=== PATIENT | female | born 1945 | race Caucasian/White ===

== ENCOUNTER → 2020-09-13 | Outpatient (CLI) | payer MEDICARE, OTHER ==
[2020-08-30 12:40] VITALS: BP 132/82
[~2020-09-13] MED LIST: CIMETIDINE PO; CYMBALTA60 M1 PO; FUROSEMIDE40 MG; KLOR-CON M1010 MEQ PO; LIPITOR 40MG TA40 MG PO; NEXIUM 40MG40 MG; ONABOTULINUMTOXINA IM; PERCOCET 325 MG1 TAB PO; REMERON15 MG PO; RENEXA; SINGULAIR PO; TREXIMET
[2020-09-13 11:45] LABS: BASO # 0.1 (0.02-0.10); EOS # 0.5 (0.04-0.40); EOS % 7.4 % (1.0-5.0); HEMATOCRIT 40.9 % (37.0-47.0); HEMOGLOBIN 13.2 g/dL (12.5-16.0); LYMPH# 1.3 (1.50-4.00); MEAN CELL VOLUME 89 fl (78-100); MEAN CORPUSCULAR HEMOGLOBIN 29 pg (27-31); MEAN CORPUSCULAR HGB CONC 32 g/dL (33-37); MEAN PLATELET VOLUME 11.2 fl (7.4-10.4); MONO # 0.7 (0.20-0.80); NEU # 4.1 (1.40-6.50); PLATELET COUNT 237 K/mm3 (130-400); RED BLOOD COUNT 4.61 M/mm3 (4.10-5.30); RED CELL DISTRIBUTION WIDTH 14.8 % (11.5-14.5); WHITE BLOOD COUNT 6.6 K/mm3 (4.8-10.8)
[2020-09-13 11:53] LABS: CALCIUM 9.2 mg/dL (8.3-10.5)
[2020-09-13 11:55] LABS: TOTAL PROTEIN 6.6 g/dL (6.2-8.1)
[2020-09-13 11:57] LABS: TOTAL BILIRUBIN 0.9 mg/dL (0.2-1.2)
== END ==
LOC: LAB 10:46
PROVIDERS: Physician Assistant
DX: Z13.29 Encounter for screening for other suspected endocrine disorder (principal); J90 Pleural effusion, not elsewhere classified; S22.42XA Multiple fractures of ribs, left side, initial encounter for closed fracture; E78.5 Hyperlipidemia, unspecified; G62.9 Polyneuropathy, unspecified; R03.0 Elevated blood-pressure reading, without diagnosis of hypertension; W19.XXXD Unspecified fall, subsequent encounter

== ENCOUNTER → 2020-10-04 | Outpatient (CLI) | payer MEDICARE, OTHER ==
[2020-08-30 12:40] VITALS: BP 132/82
== END ==
LOC: RAD 06:39
DX: M51.36 Other intervertebral disc degeneration, lumbar region (principal); M48.07 Spinal stenosis, lumbosacral region
CPT/HCPCS: A9585

== ENCOUNTER → 2020-10-26 | Outpatient (CLI) | payer MEDICARE, OTHER ==
[2020-08-30 12:40] VITALS: BP 132/82
== END ==
LOC: RAD 07:30
DX: M25.511 Pain in right shoulder (principal)

== ENCOUNTER → 2020-11-17 | Outpatient (CLI) | payer MEDICARE, OTHER ==
[2020-08-30 12:40] VITALS: BP 132/82
[2020-11-17 23:15] LABS: FOLATE (FOLIC ACID) 19.6 ng/mL (7.0-31.4)
[2020-11-18 00:20] LABS: SYPHILIS AB SCREEN w REFLEX Negative (Negative)
[2020-11-21 14:48] LABS: VITAMIN E 12.6 mg/L (())
== END ==
LOC: LAB 14:17
PROVIDERS: Nurse Practitioner
DX: G43.719 Chronic migraine without aura, intractable, without status migrainosus (principal); R20.2 Paresthesia of skin

== ENCOUNTER 2020-11-30 11:05 | Outpatient (RCR) | payer MEDICARE, OTHER ==
[2020-08-30 12:40] VITALS: BP 132/82
== END 2021-02-28 | disposition home or self-care (01) ==
LOC: PT
DX: M25.511 Pain in right shoulder (principal)

== ENCOUNTER → 2021-02-14 | Outpatient (CLI) | payer MEDICARE, OTHER ==
[2020-08-30 12:40] VITALS: BP 132/82
[~2021-02-14] MED LIST changes: +ACETAMINOPHEN-H1 TA2 PO; +ASPIRIN E.C. 8181 MG PO; +ATORVASTATIN CA80 MG PO; +KLOR-CON 1010 MEQ PO; +RANEXA500 M1 PO; +TRAMADOL 50 MG TAB PO
[2021-02-14 11:20] LABS: HEMATOCRIT 41.1 % (37.0-47.0); HEMOGLOBIN 13.2 g/dL (12.5-16.0); MEAN PLATELET VOLUME 11.6 fl (7.4-10.4); RED BLOOD COUNT 4.66 M/mm3 (4.10-5.30); RED CELL DISTRIBUTION WIDTH 15.3 % (11.5-14.5); WHITE BLOOD COUNT 9.4 K/mm3 (4.8-10.8)
[2021-02-14 11:30] LABS: POTASSIUM 4.4 mmol/L (3.5-5.1)
[2021-02-14 11:31] LABS: CALCIUM 9.2 mg/dL (8.3-10.5)
[2021-02-14 11:32] LABS: TOTAL PROTEIN 6.6 g/dL (6.2-8.1)
[2021-02-14 11:34] LABS: TOTAL BILIRUBIN 0.6 mg/dL (0.2-1.2)
[2021-02-14 21:52] LABS: IGM,SERUM 128 mg/dL (33-293); IMMUNOGLOBULIN A 173 mg/dL (69-517); IMMUNOGLOBULIN G 571 mg/dL (552-1631)
[2021-02-15 11:25] LABS: CERULOPLASMIN 31 mg/dL (20-60)
[2021-02-18 09:00] LABS: VITAMIN B1 213 nmol/L (70-180)
[2021-02-20 10:59] LABS: A/G RATIO (PEP) 1.19 (())
== END ==
LOC: LAB 10:42
PROVIDERS: Psychiatry & Neurology Neurology
DX: G62.9 Polyneuropathy, unspecified (principal); R29.6 Repeated falls; R27.0 Ataxia, unspecified

== ENCOUNTER → 2021-02-20 | Outpatient (CLI) | payer MEDICARE, OTHER ==
[2020-08-30 12:40] VITALS: BP 132/82
== END ==
LOC: LAB 02-16 15:13
DX: G62.9 Polyneuropathy, unspecified (principal)

== ENCOUNTER 2021-03-01 10:29 | Outpatient (RCR) | payer MEDICARE, OTHER ==
[2020-08-30 12:40] VITALS: BP 132/82
[~2021-03-01 10:29] MED LIST changes: -ACETAMINOPHEN-H1 TA2 PO; -ASPIRIN E.C. 8181 MG PO; -ATORVASTATIN CA80 MG PO; -KLOR-CON 1010 MEQ PO; -RANEXA500 M1 PO; -TRAMADOL 50 MG TAB PO
== END 2021-05-30 | disposition still patient (30) ==
LOC: PT
DX: M25.511 Pain in right shoulder (principal)

== ENCOUNTER → 2021-03-15 | Outpatient (CLI) | payer MEDICARE, OTHER ==
[2020-08-30 12:40] VITALS: BP 132/82
[~2021-03-15] MED LIST changes: +ACETAMINOPHEN-H1 TA2 PO; +ASPIRIN E.C. 8181 MG PO; +ATORVASTATIN CA80 MG PO; +KLOR-CON 1010 MEQ PO; +RANEXA500 M1 PO; +TRAMADOL 50 MG TAB PO
== END ==
LOC: MAMMO 09:08
DX: Z12.39 Encounter for other screening for malignant neoplasm of breast (principal); Z13.820 Encounter for screening for osteoporosis; R74.8 Abnormal levels of other serum enzymes

== ENCOUNTER → 2021-03-15 | Outpatient (CLI) | payer MEDICARE, OTHER ==
[2020-08-30 12:40] VITALS: BP 132/82
[2021-03-15 09:41] LABS: ALBUMIN 4.3 g/dL (3.4-4.8); POTASSIUM 3.9 mmol/L (3.5-5.1); SODIUM 142 mmol/L (136-145)
[2021-03-15 09:42] LABS: CALCIUM 9.7 mg/dL (8.3-10.5)
[2021-03-15 09:43] LABS: GLUCOSE 103 mg/dL (65-105); TOTAL PROTEIN 7.1 g/dL (6.2-8.1)
[2021-03-15 09:44] LABS: CARBON DIOXIDE 27 mmol/L (23-31)
[2021-03-15 09:45] LABS: TOTAL BILIRUBIN 0.7 mg/dL (0.2-1.2)
[2021-03-15 09:48] LABS: AST-SGOT 28 U/L (5-34)
[2021-03-15 09:50] LABS: ALT/SGPT 34 U/L (0-55)
[2021-03-15 10:06] LABS: ACETAMINOPHEN < 1 ug/mL
[2021-03-16 05:24] LABS: HEPATITIS C ANTIBODY Negative (Negative)
[2021-03-19 20:46] LABS: 5'NUCLEOTIDASE 12 U/L (0-15)
== END ==
LOC: RAD 09:08 → MAMMO 10:00
PROVIDERS: Physician Assistant
DX: Z13.820 Encounter for screening for osteoporosis (principal); M85.80 Other specified disorders of bone density and structure, unspecified site; R74.8 Abnormal levels of other serum enzymes

== ENCOUNTER → 2021-03-28 | Outpatient (CLI) | payer MEDICARE, OTHER ==
[2020-08-30 12:40] VITALS: BP 132/82
== END ==
LOC: RAD 09:15
DX: K82.4 Cholesterolosis of gallbladder (principal)

== ENCOUNTER → 2021-03-31 | Outpatient (CLI) | payer MEDICARE, OTHER ==
[2020-08-30 12:40] VITALS: BP 132/82
[2021-04-05 23:12] LABS: ALK PHOSHATASE AMS
== END ==
LOC: LAB 11:20
PROVIDERS: Physician Assistant
DX: R74.8 Abnormal levels of other serum enzymes (principal)

== ENCOUNTER → 2021-04-21 | Outpatient (CLI) | payer MEDICARE, OTHER ==
[2021-04-21 10:15] LABS: BASO # 0.05 (0.02-0.10); EOS # 0.14 (0.04-0.40); HEMATOCRIT 41.2 % (37.0-47.0); HEMOGLOBIN 13.7 g/dL (12.5-16.0); LYMPH# 1.56 (1.50-4.00); MEAN CELL VOLUME 87 fl (78-100); MEAN CORPUSCULAR HEMOGLOBIN 29 pg (27-31); MEAN CORPUSCULAR HGB CONC 33 g/dL (33-37); MEAN PLATELET VOLUME 10.8 fl (7.4-10.4); MONO # 0.58 (0.20-0.80); NEU # 4.48 (1.40-6.50); PLATELET COUNT 195 K/mm3 (130-400); RED BLOOD COUNT 4.76 M/mm3 (4.10-5.30); RED CELL DISTRIBUTION WIDTH 15.4 % (11.5-14.5); WHITE BLOOD COUNT 6.8 K/mm3 (4.8-10.8)
[2021-04-21 10:19] LABS: ALBUMIN 3.9 g/dL (3.4-4.8)
[2021-04-21 10:21] LABS: CALCIUM 9.3 mg/dL (8.3-10.5)
[2021-04-21 10:22] LABS: TOTAL PROTEIN 6.7 g/dL (6.2-8.1)
[2021-04-21 10:24] LABS: TOTAL BILIRUBIN 0.8 mg/dL (0.2-1.2)
[2021-04-21 14:05] LABS: ERYTHROCYTE SEDIMENTATION RATE 5 mm/hr (0-30)
[2021-04-22 04:05] LABS: CERULOPLASMIN 33 mg/dL (20-60)
[2021-04-26 16:35] LABS: .COPPER,S 1.29 mcg/mL (())
[2021-04-27 10:55] LABS: A/G RATIO (PEP) 1.12 (())
[2021-04-28 05:00] LABS: VITAMIN E 13.9 mg/L (())
[2021-04-28 07:14] LABS: VITAMIN B1 166 nmol/L (70-180)
== END ==
LOC: LAB 09:46
PROVIDERS: Psychiatry & Neurology Neurology
DX: G62.9 Polyneuropathy, unspecified (principal); R27.0 Ataxia, unspecified; R29.6 Repeated falls

== ENCOUNTER → 2021-04-25 | Outpatient (CLI) | payer MEDICARE, OTHER ==
[2021-04-25 07:28] LABS: BASO # 0.05 (0.02-0.10); EOS % 4.4 % (1.0-5.0); HEMATOCRIT 42.5 % (37.0-47.0); HEMOGLOBIN 13.9 g/dL (12.5-16.0); LYMPH# 1.99 (1.50-4.00); MEAN CELL VOLUME 88 fl (78-100); MEAN CORPUSCULAR HEMOGLOBIN 29 pg (27-31); MEAN CORPUSCULAR HGB CONC 33 g/dL (33-37); MEAN PLATELET VOLUME 10.9 fl (7.4-10.4); MONO # 0.69 (0.20-0.80); NEU # 3.72 (1.40-6.50); PLATELET COUNT 196 K/mm3 (130-400); RED BLOOD COUNT 4.82 M/mm3 (4.10-5.30); RED CELL DISTRIBUTION WIDTH 15.6 % (11.5-14.5); WHITE BLOOD COUNT 6.8 K/mm3 (4.8-10.8)
[2021-04-25 07:30] LABS: POTASSIUM 4.1 mmol/L (3.5-5.1)
[2021-04-25 07:31] LABS: CALCIUM 9.1 mg/dL (8.3-10.5)
== END ==
LOC: LAB 07:04
PROVIDERS: Internal Medicine Interventional Cardiology
DX: Z01.812 Encounter for preprocedural laboratory examination (principal); R07.89 Other chest pain; R60.0 Localized edema

== ENCOUNTER → 2021-06-02 | Outpatient (CLI) | payer MEDICARE, OTHER | LOC: LAB 12:27 | DX: G62.9 Polyneuropathy, unspecified (principal); R20.2 Paresthesia of skin; R20.0 Anesthesia of skin ==

== ENCOUNTER → 2021-07-27 | Outpatient (CLI) | payer MEDICARE, OTHER ==
[2021-07-27 09:48] LABS: BASO # 0.07 K/mm3 (0.02-0.10); EOS # 0.26 K/mm3 (0.04-0.40); EOS % 2.9 % (1.0-5.0); HEMATOCRIT 43.5 % (37.0-47.0); HEMOGLOBIN 13.9 g/dL (12.5-16.0); LYMPH# 1.43 K/mm3 (1.50-4.00); MEAN CELL VOLUME 90 fl (78-100); MEAN CORPUSCULAR HEMOGLOBIN 29 pg (27-31); MEAN CORPUSCULAR HGB CONC 32 g/dL (33-37); MEAN PLATELET VOLUME 11.1 fl (7.4-10.4); MONO # 0.73 K/mm3 (0.20-0.80); NEU # 6.39 K/mm3 (1.40-6.50); PLATELET COUNT 215 K/mm3 (130-400); RED BLOOD COUNT 4.86 M/mm3 (4.10-5.30); RED CELL DISTRIBUTION WIDTH 14.9 % (11.5-14.5); WHITE BLOOD COUNT 8.9 K/mm3 (4.8-10.8)
[2021-07-27 09:56] LABS: POTASSIUM 4.4 mmol/L (3.5-5.1)
[2021-07-27 10:00] LABS: URINE APPEARANCE CLEAR; URINE BILIRUBIN NEGATIVE (NEGATIVE); URINE BLOOD NEGATIVE (NEGATIVE); URINE COLOR YELLOW; URINE GLUCOSE NEGATIVE (NEGATIVE); URINE KETONE NEGATIVE (NEGATIVE); URINE LEUKOCYTE ESTERASE NEGATIVE (NEGATIVE); URINE NITRATE NEGATIVE (NEGATIVE); URINE PROTEIN(semi-quant) NEGATIVE (NEGATIVE); URINE UROBILINOGEN NORMAL (NORMAL); URINE WBC 0-1 /hpf (0-3)
[2021-07-27 10:01] LABS: TOTAL BILIRUBIN 0.6 mg/dL (0.2-1.2)
[2021-07-27 10:11] LABS: PARTIAL THROMBOPLASTIN TIME 22.5 SECONDS (21.0-32.0); PROTHROMBIN TIME 9.9 SECONDS (9.0-12.0)
== END ==
LOC: RAD 09:29
PROVIDERS: Physician Assistant
DX: Z01.812 Encounter for preprocedural laboratory examination (principal); I77.810 Thoracic aortic ectasia; I51.7 Cardiomegaly; W19.XXXA Unspecified fall, initial encounter

== ENCOUNTER → 2021-08-08 | Outpatient (CLI) | payer MEDICARE, OTHER | LOC: LAB 09:04 | DX: Z01.818 Encounter for other preprocedural examination (principal); Z20.822 Contact with and (suspected) exposure to COVID-19 ==

== ENCOUNTER 2021-08-13 13:21 | Emergency (ER) | payer MEDICARE, OTHER ==
[~2021-08-13] VITALS: Ht 175.3 cm; Wt 91.8 kg
[~2021-08-13 13:21] MED LIST changes: -ACETAMINOPHEN-H1 TA2 PO; -ASPIRIN E.C. 8181 MG PO; -ATORVASTATIN CA80 MG PO; -KLOR-CON 1010 MEQ PO; -RANEXA500 M1 PO; -TRAMADOL 50 MG TAB PO
[2021-08-13] MEDS ORDERED: TRAMADOL 50 MG TAB PO (13:57)
[2021-08-13] MEDS ORDERED: ACETAMINOPHEN-H1 TA2 PO (13:57)
[2021-08-13 14:19] VITALS: BP 98/60
[2021-08-13] MEDS ORDERED: ATORVASTATIN CA80 MG PO (14:53)
[2021-08-13] MEDS ORDERED: KLOR-CON 1010 MEQ PO (14:56)
[2021-08-13] MEDS ORDERED: RANEXA500 M1 PO (14:56)
[2021-08-13] MEDS ORDERED: ASPIRIN E.C. 8181 MG PO (14:57)
== END 2021-08-13 14:40 | disposition home or self-care (01) ==
LOC: ED 13:21
DX: S81.811A Laceration without foreign body, right lower leg, initial encounter (principal); I10 Essential (primary) hypertension; K21.9 Gastro-esophageal reflux disease without esophagitis; Z87.891 Personal history of nicotine dependence; Z79.899 Other long term (current) drug therapy; X58.XXXA Exposure to other specified factors, initial encounter
CPT/HCPCS: 90715

== ENCOUNTER 2021-12-05 09:48 | Outpatient (RCR) | payer MEDICARE, OTHER ==
[~2021-12-05 09:48] MED LIST changes: +ACETAMINOPHEN-H1 TA2 PO; +ASPIRIN E.C. 8181 MG PO; +ATORVASTATIN CA80 MG PO; +KLOR-CON 1010 MEQ PO; +RANEXA500 M1 PO; +TRAMADOL 50 MG TAB PO
== END 2021-12-18 15:31 ==
LOC: OPPGERO 09:48
DX: F43.21 Adjustment disorder with depressed mood (principal); G43.109 Migraine with aura, not intractable, without status migrainosus; G62.9 Polyneuropathy, unspecified; I20.9 Angina pectoris, unspecified; M81.0 Age-related osteoporosis without current pathological fracture; Z98.890 Other specified postprocedural states; Z79.899 Other long term (current) drug therapy; Z98.1 Arthrodesis status

== ENCOUNTER 2021-12-19 08:00 | Outpatient (RCR) | payer MEDICARE, OTHER | END 2022-01-18 19:37 | disposition home or self-care (01) | LOC: OPPGERO 08:00 | DX: F43.21 Adjustment disorder with depressed mood (principal); Z79.899 Other long term (current) drug therapy; Z98.890 Other specified postprocedural states; Z98.1 Arthrodesis status ==

== ENCOUNTER 2022-01-22 12:21 | Outpatient (RCR) | payer MEDICARE, OTHER | END 2022-02-16 16:14 | disposition still patient (30) | LOC: OPPGERO 12:21 | DX: F43.21 Adjustment disorder with depressed mood (principal) ==

== ENCOUNTER 2022-02-19 10:17 | Outpatient (RCR) | payer MEDICARE, OTHER | END 2022-03-20 20:58 | disposition home or self-care (01) | LOC: OPPGERO 10:17 | DX: F43.21 Adjustment disorder with depressed mood (principal); Z63.4 Disappearance and death of family member; Z96.651 Presence of right artificial knee joint; Z98.1 Arthrodesis status; Z98.890 Other specified postprocedural states ==

== ENCOUNTER → 2022-05-25 | Outpatient (CLI) | payer MEDICARE, OTHER ==
[2022-05-25 10:53] LABS: POTASSIUM 4.4 mmol/L (3.5-5.1)
[2022-05-25 10:54] LABS: CALCIUM 9.4 mg/dL (8.3-10.5)
[2022-05-25 10:59] LABS: HEMATOCRIT 40.6 % (37.0-47.0); HEMOGLOBIN 13.5 g/dL (12.5-16.0); MEAN PLATELET VOLUME 11.7 fl (7.4-10.4); RED BLOOD COUNT 4.29 M/mm3 (4.10-5.30); RED CELL DISTRIBUTION WIDTH 14.2 % (11.5-14.5)
== END ==
LOC: LAB 10:14
PROVIDERS: Internal Medicine Interventional Cardiology
DX: I20.9 Angina pectoris, unspecified (principal)

== ENCOUNTER 2022-09-17 09:50 | Outpatient (RCR) | payer MEDICARE, OTHER | END 2022-09-19 | disposition home or self-care (01) | LOC: PT | DX: S39.82XD Other specified injuries of lower back, subsequent encounter (principal); X58.XXXD Exposure to other specified factors, subsequent encounter ==

== ENCOUNTER → 2022-09-20 | Outpatient (CLI) | payer MEDICARE, OTHER ==
[2022-09-20 14:54] LABS: BASO # 0.03 K/mm3 (0.02-0.10); EOS % 1.3 % (1.0-5.0); HEMATOCRIT 40.4 % (37.0-47.0); HEMOGLOBIN 13.6 g/dL (12.5-16.0); LYMPH# 1.87 K/mm3 (1.50-4.00); MEAN CELL VOLUME 95 fl (78-100); MEAN CORPUSCULAR HEMOGLOBIN 32 pg (27-31); MEAN CORPUSCULAR HGB CONC 34 g/dL (33-37); MEAN PLATELET VOLUME 11.6 fl (7.4-10.4); MONO # 0.59 K/mm3 (0.20-0.80); NEU # 4.97 K/mm3 (1.40-6.50); PLATELET COUNT 174 K/mm3 (130-400); RED BLOOD COUNT 4.25 M/mm3 (4.10-5.30); WHITE BLOOD COUNT 7.6 K/mm3 (4.8-10.8)
[2022-09-20 14:59] LABS: ALBUMIN 3.8 g/dL (3.4-4.8); POTASSIUM 3.8 mmol/L (3.5-5.1)
[2022-09-20 15:00] LABS: CALCIUM 9.2 mg/dL (8.3-10.5)
[2022-09-20 15:02] LABS: TOTAL PROTEIN 6.4 g/dL (6.2-8.1)
[2022-09-20 15:03] LABS: TOTAL BILIRUBIN 0.9 mg/dL (0.2-1.2)
== END ==
LOC: LAB 14:26
PROVIDERS: Physician Assistant
DX: Z00.00 Encounter for general adult medical examination without abnormal findings (principal); Z13.29 Encounter for screening for other suspected endocrine disorder; Z12.39 Encounter for other screening for malignant neoplasm of breast; Z23 Encounter for immunization; E78.5 Hyperlipidemia, unspecified; K90.9 Intestinal malabsorption, unspecified; J30.2 Other seasonal allergic rhinitis; G43.109 Migraine with aura, not intractable, without status migrainosus; G62.9 Polyneuropathy, unspecified; M19.90 Unspecified osteoarthritis, unspecified site; M85.80 Other specified disorders of bone density and structure, unspecified site; R74.8 Abnormal levels of other serum enzymes

== ENCOUNTER → 2022-10-02 | Outpatient (CLI) | payer MEDICARE, OTHER | LOC: RAD 12:24 | DX: M43.17 Spondylolisthesis, lumbosacral region (principal); Z98.1 Arthrodesis status ==

== ENCOUNTER 2022-12-19 10:50 | Outpatient (RCR) | payer MEDICARE, OTHER | END 2023-01-18 | disposition home or self-care (01) | LOC: PT | DX: S39.82XA Other specified injuries of lower back, initial encounter (principal) ==

== ENCOUNTER 2023-05-21 08:00 | Outpatient (RCR) | payer MEDICARE, OTHER | END 2023-06-20 | disposition home or self-care (01) | LOC: PT | DX: G62.9 Polyneuropathy, unspecified (principal); M21.371 Foot drop, right foot; M54.50 Low back pain, unspecified; G89.29 Other chronic pain ==

== ENCOUNTER 2023-07-04 05:07 | Emergency (ER) | payer MEDICARE, OTHER ==
[~2023-07-04] VITALS: Ht 172.7 cm; Wt 85.0 kg
[2023-07-04 06:41] VITALS: BP 100/68
== END 2023-07-04 06:42 | disposition home or self-care (01) ==
LOC: ED 05:07
DX: S81.812A Laceration without foreign body, left lower leg, initial encounter (principal); F17.200 Nicotine dependence, unspecified, uncomplicated; W22.8XXA Striking against or struck by other objects, initial encounter

== ENCOUNTER → 2023-07-25 | Outpatient (CLI) | payer MEDICARE, OTHER ==
[2023-07-25 09:11] LABS: POTASSIUM 3.9 mmol/L (3.5-5.1)
[2023-07-25 09:12] LABS: CALCIUM 9.7 mg/dL (8.3-10.5)
== END ==
LOC: LAB 08:41
DX: I83.893 Varicose veins of bilateral lower extremities with other complications (principal)

== ENCOUNTER → 2023-11-13 | Outpatient (CLI) | payer MEDICARE, OTHER ==
[2023-11-13 14:41] LABS: BASO # 0.07 K/mm3 (0.02-0.10); EOS # 0.05 K/mm3 (0.04-0.40); EOS % 0.5 % (1.0-5.0); HEMATOCRIT 41.3 % (37.0-47.0); HEMOGLOBIN 13.4 g/dL (12.5-16.0); LYMPH# 1.59 K/mm3 (1.50-4.00); MEAN CELL VOLUME 89 fl (78-100); MEAN CORPUSCULAR HEMOGLOBIN 29 pg (27-31); MEAN CORPUSCULAR HGB CONC 32 g/dL (33-37); MEAN PLATELET VOLUME 10.1 fl (7.4-10.4); MONO # 0.77 K/mm3 (0.20-0.80); PLATELET COUNT 249 K/mm3 (130-400); RED BLOOD COUNT 4.62 M/mm3 (4.10-5.30); RED CELL DISTRIBUTION WIDTH 15.3 % (11.5-14.5); WHITE BLOOD COUNT 9.2 K/mm3 (4.8-10.8)
[2023-11-13 14:49] LABS: ALBUMIN 4.6 g/dL (3.4-4.8)
[2023-11-13 14:51] LABS: CALCIUM 10.2 mg/dL (8.3-10.5)
[2023-11-13 14:52] LABS: TOTAL PROTEIN 7.3 g/dL (6.2-8.1)
[2023-11-13 14:54] LABS: TOTAL BILIRUBIN 0.7 mg/dL (0.2-1.2)
[2023-11-13 14:57] LABS: PH-URINE 6.5 (5.0 - 8.0); URINE APPEARANCE CLEAR (CLEAR); URINE BILIRUBIN NEGATIVE (NEGATIVE); URINE BLOOD NEGATIVE (NEGATIVE); URINE COLOR YELLOW (YELLOW); URINE GLUCOSE NEGATIVE (NEGATIVE); URINE KETONE NEGATIVE (NEGATIVE); URINE LEUKOCYTE ESTERASE NEGATIVE (NEGATIVE); URINE NITRATE NEGATIVE (NEGATIVE); URINE PROTEIN(semi-quant) NEGATIVE (NEGATIVE); URINE WBC 0-1 /hpf (0-3)
[2023-11-13 16:06] LABS: PROTHROMBIN TIME 10.3 SECONDS (9.0-12.0)
== END ==
LOC: LAB 14:21
PROVIDERS: Physician Assistant
DX: Z01.812 Encounter for preprocedural laboratory examination (principal); Z13.29 Encounter for screening for other suspected endocrine disorder; K90.9 Intestinal malabsorption, unspecified

== ENCOUNTER → 2023-12-10 | Outpatient (CLI) | payer MEDICARE, OTHER | LOC: MAMMO 13:52 | DX: Z12.31 Encounter for screening mammogram for malignant neoplasm of breast (principal) ==

== ENCOUNTER → 2024-01-08 | Outpatient (CLI) | payer MEDICARE, OTHER | LOC: RAD 13:06 | DX: M43.17 Spondylolisthesis, lumbosacral region (principal); M41.86 Other forms of scoliosis, lumbar region; Z98.1 Arthrodesis status ==

== ENCOUNTER → 2024-01-09 | Outpatient (CLI) | payer MEDICARE, OTHER | LOC: RAD 08:47 | DX: J18.9 Pneumonia, unspecified organism (principal) ==

== ENCOUNTER → 2024-01-28 | Outpatient (CLI) | payer MEDICARE, OTHER ==
[~2024-01-28] MED LIST changes: +CLOPIDOGREL PO
[2024-01-28 08:48] LABS: SODIUM 141 mmol/L (136-145)
[2024-01-28 08:50] LABS: GLUCOSE 108 mg/dL (65-105)
[2024-01-28 08:51] LABS: CARBON DIOXIDE 23 mmol/L (23-31)
[2024-01-28 09:02] LABS: TROPONIN-I < 0.030 ng/mL (0.00-0.033)
== END ==
LOC: LAB 08:28
DX: I20.89 Other forms of angina pectoris (principal)

== ENCOUNTER → 2024-01-30 | Outpatient (CLI) | payer MEDICARE, OTHER ==
[2024-01-30 12:04] LABS: CALCIUM 10.4 mg/dL (8.3-10.5)
== END ==
LOC: LAB 11:09
DX: I20.89 Other forms of angina pectoris (principal)

== ENCOUNTER → 2024-05-08 | Outpatient (CLI) | payer MEDICARE, OTHER ==
[~2024-05-08] MED LIST changes: +Gadoterate 20 ML VIAL IV ONE
== END ==
LOC: RAD 09:03
DX: M48.02 Spinal stenosis, cervical region (principal); M43.12 Spondylolisthesis, cervical region; M50.31 Other cervical disc degeneration, high cervical region; Z98.1 Arthrodesis status
CPT/HCPCS: A9575

== ENCOUNTER → 2024-05-20 | Outpatient (RCR) | payer MEDICARE, OTHER ==
[~2024-05-20] MED LIST changes: +ALBUTEROL SULF6.7 GM IH; +ALDACTONE 25MG25 MG PO; +CALTRATE 600 +1 TAB PO; +CARDENE 20MG CA20 M1 PO; +CENTRUM SILVER1 EAC1 PO; +EMGALITY120 MG/1 M SQ; -Gadoterate 20 ML VIAL IV ONE; +HYDROXYZINE HCL25 M1 PO; +MAGNESIUM OXID200 MG PO; +NITROSTAT0.4 M1 SL; +PANTOPRAZOLE SO40 MG PO; +SUMATRIPTAN-NA1 EACH PO; +TIZANIDINE HYDRO2 M1 PO; +VITAMIN B COMPL1 SGL PO; +VITAMIN D310 MC3 PO
== END ==
LOC: PT
DX: M25.551 Pain in right hip (principal); M25.552 Pain in left hip

== ENCOUNTER 2024-05-24 11:35 | Emergency (ER) | payer MEDICARE, OTHER ==
[~2024-05-24] VITALS: Wt 80.0 kg
[~2024-05-24 11:35] MED LIST changes: -ALBUTEROL SULF6.7 GM IH; -ALDACTONE 25MG25 MG PO; -CALTRATE 600 +1 TAB PO; -CARDENE 20MG CA20 M1 PO; -CENTRUM SILVER1 EAC1 PO; -EMGALITY120 MG/1 M SQ; -HYDROXYZINE HCL25 M1 PO; -MAGNESIUM OXID200 MG PO; -NITROSTAT0.4 M1 SL; -PANTOPRAZOLE SO40 MG PO; -SUMATRIPTAN-NA1 EACH PO; -TIZANIDINE HYDRO2 M1 PO; -VITAMIN B COMPL1 SGL PO; -VITAMIN D310 MC3 PO
[2024-05-24] MEDS ORDERED: Lidocaine 1% w EPI (1:100,000) 20 ML Multi-Dose VIAL SQ ONE (12:15)
[2024-05-24] MEDS ORDERED: PANTOPRAZOLE SO40 MG PO (12:54)
[2024-05-24] MEDS ORDERED: HYDROXYZINE HCL25 M1 PO ×2 (12:54→12:57)
[2024-05-24] MEDS ORDERED: TIZANIDINE HYDRO2 M1 PO (12:55)
[2024-05-24] MEDS ORDERED: ALBUTEROL SULF6.7 GM IH (12:56)
[2024-05-24] MEDS ORDERED: SUMATRIPTAN-NA1 EACH PO (12:57)
[2024-05-24] MEDS ORDERED: CARDENE 20MG CA20 M1 PO (12:58)
[2024-05-24] MEDS ORDERED: NITROSTAT0.4 M1 SL (12:58)
[2024-05-24] MEDS ORDERED: ALDACTONE 25MG25 MG PO (12:59)
[2024-05-24] MEDS ORDERED: MAGNESIUM OXID200 MG PO (13:00)
[2024-05-24] MEDS ORDERED: CALTRATE 600 +1 TAB PO (13:00)
[2024-05-24] MEDS ORDERED: CENTRUM SILVER1 EAC1 PO (13:00)
[2024-05-24] MEDS ORDERED: VITAMIN B COMPL1 SGL PO (13:00)
[2024-05-24] MEDS ORDERED: VITAMIN D310 MC3 PO (13:01)
[2024-05-24] MEDS ORDERED: EMGALITY120 MG/1 M SQ (13:02)
[2024-05-24 13:11] VITALS: BP 105/67
== END 2024-05-24 13:12 | disposition home or self-care (01) ==
LOC: ED 11:35
DX: S81.811A Laceration without foreign body, right lower leg, initial encounter (principal); Z79.02 Long term (current) use of antithrombotics/antiplatelets; W22.03XA Walked into furniture, initial encounter

== ENCOUNTER → 2024-06-09 | Day surgery (SDC) | payer MEDICARE, OTHER ==
[~2024-06-09] MED LIST changes: +ALBUTEROL SULF6.7 GM IH; +ALDACTONE 25MG25 MG PO; +CALTRATE 600 +1 TAB PO; +CARDENE 20MG CA20 M1 PO; +CENTRUM SILVER1 EAC1 PO; +EMGALITY120 MG/1 M SQ; +HYDROXYZINE HCL25 M1 PO; +Iohexol 300 - 10 ML VIAL IV ONE; +Lidocaine PF 2% (20 MG/ML) 2 ML VIAL IJ ONE; +MAGNESIUM OXID200 MG PO; +NITROSTAT0.4 M1 SL; +PANTOPRAZOLE SO40 MG PO; +SUMATRIPTAN-NA1 EACH PO; +TIZANIDINE HYDRO2 M1 PO; +VITAMIN B COMPL1 SGL PO; +VITAMIN D310 MC3 PO
== END ==
LOC: MSO 11:31
DX: M54.12 Radiculopathy, cervical region (principal); M48.02 Spinal stenosis, cervical region
CPT/HCPCS: J1100; Q9967

== ENCOUNTER → 2024-06-17 | Outpatient (CLI) | payer MEDICARE, OTHER ==
[~2024-06-17] MED LIST changes: -Iohexol 300 - 10 ML VIAL IV ONE; -Lidocaine PF 2% (20 MG/ML) 2 ML VIAL IJ ONE
[2024-06-17 09:30] LABS: BASO # 0.06 K/mm3 (0.02-0.10); EOS # 0.04 K/mm3 (0.04-0.40); EOS % 0.4 % (1.0-5.0); HEMATOCRIT 44.1 % (37.0-47.0); HEMOGLOBIN 14.3 g/dL (12.5-16.0); LYMPH# 1.96 K/mm3 (1.50-4.00); MEAN CELL VOLUME 82 fl (78-100); MEAN CORPUSCULAR HEMOGLOBIN 27 pg (27-31); MEAN CORPUSCULAR HGB CONC 32 g/dL (33-37); MEAN PLATELET VOLUME 9.8 fl (7.4-10.4); MONO # 0.87 K/mm3 (0.20-0.80); NEU # 7.38 K/mm3 (1.40-6.50); PLATELET COUNT 274 K/mm3 (130-400); RED BLOOD COUNT 5.39 M/mm3 (4.10-5.30); RED CELL DISTRIBUTION WIDTH 18.6 % (11.5-14.5); WHITE BLOOD COUNT 10.4 K/mm3 (4.8-10.8)
[2024-06-17 09:39] LABS: ALBUMIN 4.5 g/dL (3.4-4.8)
[2024-06-17 09:41] LABS: CALCIUM 10.4 mg/dL (8.3-10.5)
[2024-06-17 09:42] LABS: TOTAL PROTEIN 7.3 g/dL (6.2-8.1)
[2024-06-17 09:44] LABS: TOTAL BILIRUBIN 0.8 mg/dL (0.2-1.2)
[2024-06-17 10:14] LABS: PARTIAL THROMBOPLASTIN TIME 21.3 SECONDS (21.0-32.0); PROTHROMBIN TIME 9.9 SECONDS (9.0-12.0)
== END ==
LOC: LAB 09:04
PROVIDERS: Physician Assistant
DX: Z01.818 Encounter for other preprocedural examination (principal)

== ENCOUNTER → 2024-12-11 | Outpatient (CLI) | payer MEDICARE, OTHER ==
[~2024-12-11] MED LIST changes: +FEXOFENADINE H180 M1 PO; +PLETAL 100MG T100 MG PO
[2024-12-11 10:39] LABS: BASO # 0.09 K/mm3 (0.02-0.10); EOS # 0.42 K/mm3 (0.04-0.40); HEMATOCRIT 42.2 % (37.0-47.0); HEMOGLOBIN 13.6 g/dL (12.5-16.0); LYMPH# 1.24 K/mm3 (1.50-4.00); MEAN CELL VOLUME 84 fl (78-100); MEAN CORPUSCULAR HEMOGLOBIN 27 pg (27-31); MEAN CORPUSCULAR HGB CONC 32 g/dL (33-37); MEAN PLATELET VOLUME 10.4 fl (7.4-10.4); MONO # 0.77 K/mm3 (0.20-0.80); NEU # 7.93 K/mm3 (1.40-6.50); PLATELET COUNT 242 K/mm3 (130-400); RED BLOOD COUNT 5.02 M/mm3 (4.10-5.30); RED CELL DISTRIBUTION WIDTH 17.7 % (11.5-14.5); WHITE BLOOD COUNT 10.5 K/mm3 (4.8-10.8)
[2024-12-11 10:40] LABS: ALBUMIN 4.7 g/dL (3.4-4.8)
[2024-12-11 10:41] LABS: CALCIUM 10.8 mg/dL (8.3-10.5)
[2024-12-11 10:45] LABS: TOTAL BILIRUBIN 0.7 mg/dL (0.2-1.2)
== END ==
LOC: LAB 10:20
PROVIDERS: Physician Assistant
DX: Z00.00 Encounter for general adult medical examination without abnormal findings (principal); Z13.29 Encounter for screening for other suspected endocrine disorder; Z13.1 Encounter for screening for diabetes mellitus; R74.8 Abnormal levels of other serum enzymes; E78.5 Hyperlipidemia, unspecified; K90.9 Intestinal malabsorption, unspecified

== ENCOUNTER → 2024-12-17 | Outpatient (CLI) | payer MEDICARE, OTHER | LOC: MAMMO 09:42 | DX: Z12.31 Encounter for screening mammogram for malignant neoplasm of breast (principal) ==

== ENCOUNTER → 2024-12-17 | Outpatient (CLI) | payer MEDICARE, OTHER | LOC: RAD 09:54 → MAMMO 10:30 | DX: Z13.820 Encounter for screening for osteoporosis (principal); Z78.0 Asymptomatic menopausal state ==